=== PATIENT | female | born 1945 | race Caucasian/White ===

== ENCOUNTER → 2018-11-12 | Day surgery (SDC) | payer MEDICARE ==
[2018-11-10 10:59] LABS: BASOPHILS % 0.5 % (0.0-1.0); EOSINOPHILS # (AUTO) 0.1 (0.0-0.4); HEMATOCRIT 38.2 % (34.2-44.1); HEMOGLOBIN 13.1 g/dL (12.0-16.0); LYMPHOCYTES # (AUTO) 1.5 (1.0-3.2); LYMPHOCYTES % 24.3 % (18.0-39.1); MEAN CORPUSCULAR HEMOGLOBIN 31.9 pg (28-32); MEAN CORPUSCULAR HGB CONC 34.3 g/dL (31-35); MEAN CORPUSCULAR VOLUME 92.9 fL (81-99); MONOCYTES # (AUTO) 0.6 (0.2-0.8); NEUTROPHILS # (AUTO) 3.9 (2.1-6.9); PLATELET COUNT 284 x10e3/uL (140-360); RED BLOOD COUNT 4.11 x10e6/uL (3.6-5.1); RED CELL DISTRIBUTION WIDTH 12.9 % (11.7-14.4)
[2018-11-10 11:10] LABS: ALANINE AMINOTRANSFERASE 20 IU/L (0-55); ALBUMIN 3.8 g/dL (3.5-5.0); ALKALINE PHOSPHATASE 81 IU/L (40-150); ANION GAP 11.6 mmol/L (8-16); BLOOD UREA NITROGEN 17 mg/dL (7-26); BUN/CREATININE RATIO 21 (6-25); CALCIUM 10.1 mg/dL (8.4-10.2); CARBON DIOXIDE 28 mmol/L (22-29); CHLORIDE 97 mmol/L (98-107); CREATININE, SERUM 0.82 mg/dL (0.57-1.11); EST GLOMERULAR FILTRATION RATE > 60 ML/MIN (60-); GLUCOSE 87 mg/dL (74-118); POTASSIUM 4.6 mmol/L (3.5-5.1); SODIUM 132 mmol/L (136-145)
[2018-11-12] VITALS (9 sets, daily range): BP systolic 100–121; BP diastolic 50–83
[~2018-11-12] VITALS: Ht 168.9 cm; Wt 63.5 kg
[~2018-11-12] MED LIST: CALCIUM ACETAT667 M1; FENTANYL CITRATE/PF 100MCG/2 ML INJ ONE; HEPARIN SOD (PORCINE) 1000 UNIT/ML 30ML ONE; HEPARIN SOD/SOD CHLORIDE 2,000 ML ONE; IOPAMIDOL 370 MG/ML 200 ML INFUS..BTL INJ ONE; LIDOCAINE HCL 2% LOCAL 20 ML VIAL ONE; METOPROLOL TART25 MG PO; MIDAZOLAM HCL 2 MG/2 ML VIAL ONE; NITROGLYCERIN/D5W 200 MCG/ML 250 ML ONE; SIMVASTATIN20 MG PO; SODIUM CHLORIDE 0.9% 1000ML 1,000 ML ONE; VERAPAMIL HCL 2.5 MG/ML 2 ML VIAL ONE; VITAMIN D1000 UNI1 PO; eliquis PO
--- OUTSIDE RECORDS SUMMARY | 2018-11-12 11:06 | XMS REPORT | Continuity of Care Document ---
Author Author [facility] Interface Address Unknown Phone Unavailable Problems Problem Status Onset Date Classification Date Reported Comments Source Upper respiratory infection 12/17/2016 Diagnosis 12/17/2016 [facility] Allergic conjunctivitis 12/17/2016 Diagnosis 12/17/2016 [facility] J98.4 - OTHER DISORDERS OF LUNG Active 04/26/2015 [facility] Acute bronchitis Active Problem 11/08/2018 [facility] Acute upper respiratory infection Active Problem 11/08/2018 [facility] Allergic rhinitis Active Problem 11/08/2018 [facility] Arthritis Active Problem 11/08/2018 [facility] H/O: lung cancer Active Problem 11/08/2018 [facility] History of endometrial cancer Active Problem 11/08/2018 [facility] Hyperlipidemia Active Problem 11/08/2018 [facility] LUMBAR/SPINE Active [facility] Medications Medication Details Route Status Patient Instructions Ordering Provider Order Date Source Amoxicillin 875 MG / Clavulanate 125 MG Oral Tablet [Augmentin 875-mg] 875 mg=1 tab, PO, Q12H, X 10 day, # 20 tab, 0 Refill(s), Pharmacy: [facility] [id number] Active 11/24/2017 [facility] Azithromycin 5 Day Dose Pack 250 mg oral tablet See Instructions, Take 2 tablets by mouth the first day then 1 tablet by mouth days 2-5., X 5 day, # 6 tab, 0 Refill(s), Pharmacy: [facility] [id number] No Longer Active 07/10/2017 [facility] 200 ACTUAT Albuterol 0.09 MG/ACTUAT Metered Dose Inhaler [ProAir HFA] 2 puff, INHALER, Q6H, PRN wheezing, coughing, or shortness of breath, Use twice a day (am & pm), and as need for cough/wheezing, # 1 ea, 1 Refill(s), Pharmacy: [facility] [id number] Active 07/10/2017 [facility] clindamycin 150 mg oral capsule 150 mg=1 cap, PO, Q6H, X 10 day, # 40 cap, 0 Refill(s), Pharmacy: [facility] [id number] Active 05/22/2017 [facility] pravastatin 10 mg oral tablet 10 mg=1 tab, PO, Bedtime, # 90 tab, 1 Refill(s), Pharmacy: [facility] [id number] Active 02/08/2016 [facility] Azithromycin 250 MG Oral Tablet azithromycin 250 mg tablet Active [facility] benzonatate 100 MG Oral Capsule benzonatate 100 mg capsule TK 1 C PO Q 8 H FOR 10 DAYS PRF COUGH. DO NOT CRU OR CHEW Active [facility] Fluticasone propionate 0.05 MG/ACTUAT Metered Dose Nasal Jackson fluticasone 50 mcg/actuation nasal spray,suspension Active [facility] levocetirizine dihydrochloride 5 MG Oral Tablet levocetirizine 5 mg tablet Active [facility] olopatadine 1 MG/ML Ophthalmic Solution [Patanol] Patanol 0.1 % eye drops INSTILL 1 DROP INTO AFFECTED EYE(S) BY OPHTHALMIC ROUTE 2 TIMES PER DAY AT AN INTERVAL OF 6 TO 8 HOURS Active [facility] Pravastatin Sodium 10 MG Oral Tablet pravastatin 10 mg tablet Active [facility] Allergies, Adverse Reactions, Alerts Substance Category Reaction Severity Reaction type Status Date Reported Comments Source No Known Medication Allergies Assertion Drug allergy [facility] Immunizations Immunization Date Given Site Status Last Updated Comments Source influenza virus vaccine, inactivated<sup>1</sup> 04/15/2017 Left Deltoid completed Hay Result Comment: Patient tolerated injection well, waited 10 minutes with no complaints-[facility] pneumococcal 13-valent vaccine<sup>4</sup> 03/02/2017 Left Deltoid completed Hay Result Comment: Patient tolerated injection well, waited 10 minutes with no complaints-[facility] influenza virus vaccine, inactivated<sup>2</sup> 03/25/2016 Right Deltoid completed Skyler Result Comment: [facility]: [id number] Patient tollerated injection well. Waited in the waiting area for 10 minutes without complications. Normal injection site. niru holland [facility] influenza virus vaccine, inactivated<sup>1</sup> 03/25/2016 Right Deltoid completed Holland Result Comment: [facility]: [id number] Patient tollerated injection well. Waited in the waiting area for 10 minutes without complications. Normal injection site. niru holland [facility] influenza virus vaccine, inactivated<sup>3</sup> 08/03/2015 Right Deltoid completed Holland Result Comment: [facility]: [id number] Patient tollerated injection well. Waited in the waiting area for 10 minutes without complications. Normal injection site. holland, niru [facility] influenza virus vaccine, inactivated<sup>1</sup> 08/03/2015 Right Deltoid completed Holland Result Comment: [facility]: [id number] Patient tollerated injection well. Waited in the waiting area for 10 minutes without complications. Normal injection site. niru holland [facility] influenza virus vaccine, inactivated<sup>2</sup> 08/03/2015 Right Deltoid completed Holland Result Comment: [facility]: [id number] Patient tollerated injection well. Waited in the waiting area for 10 minutes without complications. Normal injection site. holland niru [facility] influenza, injectable, quadrivalent 06/22/2015 completed [facility] Results Order Name Results Value Reference Range Date Interpretation Comments Source Influenza A negative 12/17/2016 [facility] Influenza B negative 12/17/2016 [facility] Chest 2 views DX Chest 2 views DX Exam: Chest X-ray 2 views : CLINICAL HISTORY: R05 Cough - R05 Cough. Comparison: 11/08/2014. Findings: PA and lateral views of the chest are obtained. The heart size is normal. The hilar and mediastinal structures are normal. The lungs are clear without consolidation or effusion. No acute bony abnormality. Pulmonary vascularity is normal. Scoliosis of the thoracolumbar spine, convex to the right breast is noted. Impression: No active disease . 12/05/2016 - - Read by: Sheri Coto MD Dictated Date/time: 12/05/16 16:09 Electronically Signed by: Sheri Coto MD 12/05/16 16:10 FINAL REPORT [facility] Bone Density DXA [employer] MA Bone Density DXA [employer] MA - Bone Density D[employer] MA BONE DENSITY EVALUATION: 02/13/2016 CLINICAL DATA: Post menopausal. Osteoporosis. RISK FACTORS: race. FINDINGS: Bone density evaluation was performed 02/13/2016 on the AP L1-L4 region of spine. The BMD average for the exam is 0.781 g/cm2. The T-score is -2.40 and the Z-score is -0.20. This matches the World Health Organization's criteria for osteopenia and places the patient at a medium risk for fracture. An additional bone density evaluation was performed 02/13/2016 on the right femur neck using a Hologic unit. The BMD average for the exam is 0.656 g/cm2. The T-score is -1.70 and the Z-score is 0.10. This matches the World Health Organization's criteria for osteopenia and places the patient at a medium risk for fracture. An additional bone density evaluation was performed 02/13/2016 on the right total femur area using a Hologic unit. The BMD average for the exam is 0.818 g/cm2. The T-score is -1.00 and the Z-score is 0.60. This matches the World Health Organization's criteria for normal bone density and places the patient within normal limits of fracture risk. An additional bone density evaluation was performed 02/13/2016 on the left femur neck using a Hologic unit. The BMD average for the exam is 0.638 g/cm2. The T- score is -1.90 and the Z-score is -0.10. This matches the World Health Organization's criteria for osteopenia and places the patient at a medium risk for fracture. An additional bone density evaluation was performed 02/13/2016 on the left total femur area using a Hologic unit. The BMD average for the exam is 0.857 g/cm2. The T-score is -0.70 and the Z-score is 0.90. This matches the World Health Organization's criteria for normal bone density and places the patient within normal limits of fracture risk. IMPRESSION: OSTEOPENIA Patient is at medium risk for fracture. This exam was dictated and interpreted by [id number] at [facility]. Dr. Olga Rios D.O. ht/penrad:02/14/2016 10:43:37 Leather Tacker: Chelle SHAIKH(Esther)(M), [facility] 02/13/2016 - - Read by: Olga Rios DO Dictated Date/time: 02/14/16 10:43 Electronically Signed by: Olga Rios DO 02/14/16 10:43 FINAL REPORT [facility] Digital Mammo Screening Gabriel MA Digital Mammo Screening Gabriel MA - DIGITAL MAMMO SCREENING GABRIEL MA BILATERAL DIGITAL SCREENING MAMMOGRAM WITH CAD: 02/13/2016 CLINICAL: Screening. Current study was evaluated with a Computer Aided Detection (CAD) system. Comparison is made to exams dated: 09/28/2014 mammogram and 09/08/2014 mammogram - [facility]. There are scattered fibroglandular densities in both breasts. No significant masses, calcifications, or other findings are seen in either breast. There has been no significant interval change. IMPRESSION: NEGATIVE There is no mammographic evidence of malignancy. A 1 year screening mammogram is recommended. Eloise Bishop M.D., rp/penmichel:02/27/2016 08:17:30 Leather Tacker: Olimpia Jones RT(R), [facility] This exam was dictated and interpreted by [id number] for [facility]. letter sent: Normal exam Mammogram BI-RADS: 1 Negative 02/13/2016 - - Read by: Eloise Bishop MD Dictated Date/time: 02/27/16 08:17 Electronically Signed by: Eloise Bishop MD 02/27/16 08:17 FINAL REPORT [facility] Chest 2 views DX Chest 2 views DX History: Other disorders of lung Comparison: None Findings: There are a few scattered coarse interstitial markings throughout both lung haynes, otherwise, the visualized lung haynes are clear. There is no pleural effusion or pneumothorax. There is moderate hyperinflation of both lungs. The cardiomediastinal silhouette and pulmonary vasculature are within normal limits. There is no suspicious lytic or sclerotic lesion of the visualized bony structures. Impression: 1. No acute cardiopulmonary process. 2. Hyperinflated lungs compatible with COPD. 3. Minimal scattered chronic lung changes/fibrosis. 04/26/2015 - - Read by: Timmy Russell MD Dictated Date/time: 04/26/15 13:58 Electronically Signed by: Timmy Russell MD 04/26/15 14:00 FINAL REPORT [facility] Vital Signs Vital Sign Value Date Comments Source BMI Calculated 22.81 11/24/2017 [facility] Weight 64.091 11/24/2017 [facility] Temperature Oral (F) 97.8 F 11/24/2017 [facility] Heart Rate 61 11/24/2017 [facility] Systolic (mm Hg) 114 11/24/2017 [facility] Diastolic (mm Hg) 77 11/24/2017 [facility] Height 167.64 cm 11/24/2017 [facility] Height 167.64 cm 11/02/2017 [facility] BMI Calculated 22.97 11/02/2017 [facility] Weight 64.545 11/02/2017 [facility] Temperature Oral (F) 97.8 F 11/02/2017 [facility] Heart Rate 66 11/02/2017 [facility] Systolic (mm Hg) 133 11/02/2017 [facility] Diastolic (mm Hg) 73 11/02/2017 [facility] Weight 64.545 07/10/2017 [facility] Systolic (mm Hg) 108 07/10/2017 [facility] Diastolic (mm Hg) 76 07/10/2017 [facility] Temperature Oral (F) 98.3 F 07/10/2017 [facility] Heart Rate 66 07/10/2017 [facility] Weight 62.727 05/22/2017 [facility] BMI Calculated 21.99 05/22/2017 [facility] Height 168.91 cm 05/22/2017 [facility] Systolic (mm Hg) 125 05/22/2017 [facility] Diastolic (mm Hg) 77 05/22/2017 [facility] Temperature Oral (F) 98.0 F 05/22/2017 [facility] Heart Rate 64 05/22/2017 [facility] Diastolic (mm Hg) 85 12/17/2016 [facility] Height 66.5 12/17/2016 [facility] Systolic (mm Hg) 120 12/17/2016 [facility] Weight 136 12/17/2016 [facility] Encounters Location Location Details Encounter Type Encounter Number Reason For Visit Attending Provider ADM Date DC Date Status Source [facility] Outpatient Imaging [facility] Outpt Diag Services [id number] Stephon Faulkner 04/26/2015 04/27/2015 [facility] Outpatient [id number] EDILBERTO COREA 08/17/2015 Active [facility] [id number] EDILBERTO ANMOL 11/02/2015 Active [facility] Outpatient [id number] EDILBERTO ANMOL 01/16/2016 Active [facility] [place] [place] Outpatient [id number] EDILBERTO ANMOL 02/04/2016 Active [facility] Outpatient Imaging [facility] Outpatient [id number] Edilberto Anmol 02/13/2016 02/14/2016 [facility] Outpatient [id number] EDILBERTO COREA 03/25/2016 Active [facility] Outpatient [id number] EDILBERTO COREA 06/30/2016 Active [facility] Outpatient [id number] EDILBERTO COREA 11/19/2016 Active [facility] Outpatient [id number] URIEL MARKS 12/05/2016 Active [facility] Outpatient Imaging [facility] Outpt Diag Services [id number] Uriel Marks Jr 12/05/2016 12/06/2016 [id number]/I-[address] FAHEEM GabrielC: [address] [place] [address], Ph. [id number] Edilson Ceballos 12/17/2016 [facility] Outpatient [id number] EDILBERTO COREA 01/30/2017 [facility] [id number] EDILBERTO COREA 02/09/2017 Active [facility] Outpatient [id number] URIEL MARKS 03/02/2017 Active [facility] [place] Outpatient [id number] URIEL MARKS 04/15/2017 Active [facility] Outpatient [id number] URIEL MARKS 04/22/2017 Active [facility] Outpatient [id number] TYRONE GILES 05/22/2017 Active [facility] Outpatient [id number] BRUCE KAUR 05/22/2017 Active [facility] Primary Care [facility] Outpatient [id number] Edilberto Corea 05/22/2017 05/23/2017 [facility] Primary Care [facility] Ambulatory Pre-Reg [id number] Bruce Kaur 05/22/2017 05/22/2017 [facility] Outpatient [id number] BRUCE KAUR 07/10/2017 Active [facility] Outpatient [id number] Edilberto Corea 07/10/2017 07/11/2017 [facility] Outpatient [id number] URIEL MARKS 10/14/2017 Active [facility] Ambulatory Pre-Reg [id number] Uriel Marks Jr 10/14/2017 10/14/2017 [facility] Outpatient [id number] [facility] 11/02/2017 [facility] Outpatient [id number] [facility] 11/02/2017 11/03/2017 [facility] Outpatient [id number] [facility] 11/24/2017 [facility] Outpatient [id number] [facility] 11/24/2017 11/25/2017 [facility] Phone Message [id number] 04/15/2018 04/17/2018 [facility] Outpatient [id number] URIEL MARKS 04/21/2018 [facility] Ambulatory Pre-Reg [id number] Uriel Marks Jr 04/21/2018 04/21/2018 [facility] Procedures Procedure Code Date Perfomer Comments Source Colon cancer screening<sup>1</sup> [id number] 03/17/2017 Cologuard negative [facility] Bone density scan 763735996 06/22/2016 [facility] Date of last mammogram [id number] 06/22/2016 [facility] Eye examination 88388545 06/22/2015 [facility] Hysterectomy [id number] 06/22/1999 [facility] Hysterectomy 105474522 06/22/1999 [facility]
--- OUTSIDE RECORDS SUMMARY | 2018-11-12 11:06 | XMS REPORT | Summary of Care ---
Author Author [facility] Organization [facility] Address Unknown Phone Unavailable Encounter AKUA Mauricio(FIN) [id number] Date(s): 05/22/17 - 05/22/17 [facility] [address] [place], [place] [address] [phone] Attending Physician: Bruce Hood MSN, RN, DIMENSIONAL ENGINEER- Vital Signs No data available for this section Problem List Condition Effective Dates Status Health Status Informant Allergic Active rhinitis(Confirmed) Arthritis(Confirmed) Active H/O: lung Active cancer(Confirmed) History of Active endometrial cancer(Confirmed) Hyperlipidemia(Confi Active rmed) Allergies, Adverse Reactions, Alerts Substance Reaction Severity Status NKDA Active Medications No data available for this section Results No data available for this section Immunizations Given and Recorded Vaccine Date Status Refusal Reason influenza virus vaccine, inactivated1 04/15/17 Given influenza virus vaccine, inactivated2 03/25/16 Given influenza virus vaccine, inactivated3 08/03/15 Given pneumococcal 13-valent vaccine4 03/02/17 Given 1Result Comment: Patient tolerated injection well, waited 10 minutes with no complaints-amg 2Result Comment: [facility]: [id number] Patient tollerated injection well. Waited in the waiting area for 10 minutes wit hout complications. Normal injection site. niru michael 3Result Comment: [facility]: [id number] Patient tollerated injection well. Waited in the waiting area for 10 minutes wit hout complications. Normal injection site. niru michael 4Result Comment: Patient tolerated injection well, waited 10 minutes with no complaints-amg Procedures Procedure Date Related Diagnosis Body Site Colon cancer screening1 03/17/17 Hysterectomy 2000 1Cologuard negative Social History Social History Type Response Substance Abuse Use: None. Sexual 1, 2 Exercise Self assessment: Good condition. Employment/School Status: Employed. 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 Smoking Status Never smoker; Exposure to Tobacco Smoke None; Cigarette Smoking Last 365 Days No; Reg Smoking Cessation Counseling No 1has four kids, 2 sons and 2 daughters 2single, lives along but has dog, has son Assessment and Plan No data available for this section
--- OUTSIDE RECORDS SUMMARY | 2018-11-12 11:06 | XMS REPORT | Summary of Care ---
Author Author [facility] Organization [facility] Address Unknown Phone Unavailable Encounter AKUA Mauricio(FIN) [id number] Date(s): 12/05/16 - 12/05/16 [facility] Outpatient Imaging [facility] [address] [place] [phone] Discharge Disposition: Home or Self Care Attending Physician: Manohar Ornelas MD Vital Signs No data available for this [...] Status Refusal Reason influenza virus vaccine, inactivated1 03/25/16 Given influenza virus vaccine, inactivated2 08/03/15 [facility]: [id number] Patient tollerated injection well. Waited in the waiting area for 10 minutes wit hout complications. Normal injection site. niru michael 2Result Comment: [facility]: [id number] Patient tollerated injection well. Waited in the waiting area for 10 minutes wit hout complications. Normal injection site. niru michael Procedures Procedure Date Related Diagnosis Body Site Hysterectomy 1999 Social History Social History Type Response Substance Abuse Use: None. Sexual 1, 2 Exercise Self assessment: Good condition. Employment/School Status: Employed. 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 Smoking Status Never smoker; Exposure to Tobacco Smoke None; Cigarette Smoking Last 365 Days No; Reg Smoking Cessation Counseling No 1has four kids, 2 sons and 2 daughters 2single, lives along but has dog, has son Assessment and Plan No data available for this section
--- OUTSIDE RECORDS SUMMARY | 2018-11-12 11:07 | XMS REPORT | Summary of Care ---
Author Author [facility] Organization [facility] Address Unknown Phone Unavailable Encounter HQ Pilo_nandini(FIN) [id number] Date(s): 04/21/18 - 04/21/18 [facility] [address] [place] [address]- [phone] Attending Physician: Manohar Ornelas MD Vital Signs No data available for this section Problem List Condition Effective Dates Status Health Status Informant Acute Active bronchitis(Confirmed ) Acute upper Active respiratory infection(Confirmed) Allergic Active rhinitis(Confirmed) Arthritis(Confirmed) Active H/O: lung Active cancer(Confirmed) History of Active endometrial cancer(Confirmed) Hyperlipidemia(Confi Active rmed) Allergies, Adverse Reactions, Alerts No Known Medication Allergies Medications No data available for this section Results No data available for this section Immunizations Given and Recorded Vaccine Date Status Refusal Reason influenza virus vaccine, inactivated1 04/15/17 Given influenza virus vaccine, inactivated2 03/25/16 Given influenza virus vaccine, inactivated3 08/03/15 Given pneumococcal 13-valent vaccine4 03/02/17 Given 1Result Comment: Patient tolerated injection well, waited 10 minutes with no complaints-amg 2Result Comment: [facility]: [id number] Patient tollerated injection well. Waited in the waiting area for 10 minutes wit hout complications. Normal injection site. niru michael 3Result Comment: [facility]: [id number] Patient tollerated injection well. Waited in the waiting area for 10 minutes wit hout complications. Normal injection site. niru michael 4Result Comment: Patient tolerated injection well, waited 10 minutes with no complaints-amg Procedures Procedure Date Related Diagnosis Body Site Status Colon cancer screening1 03/17/17 Completed Bone density scan 06/22/16 Completed Date of last mammogram 06/22/16 Completed Eye examination 06/22/15 Completed Hysterectomy 2000 Completed 1Cologuard negative Social History Social History Type Response Substance Abuse Use: None. Sexual 1, 2 Exercise Self assessment: Good condition. Employment/School Status: Employed. 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 Smoking Status Never smoker; Exposure to Tobacco Smoke None; Cigarette Smoking Last 365 Days No; Reg Smoking Cessation Counseling No entered on: 11/24/17 1has four kids, 2 sons and 2 daughters 2single, lives along but has dog, has son Assessment and Plan No data available for this section
--- OUTSIDE RECORDS SUMMARY | 2018-11-12 11:07 | XMS REPORT | Summary of Care ---
Author Author [facility] Outpatient Imaging [facility] Organization [facility] Outpatient Imaging [facility] Address Unknown Phone Unavailable Encounter AKUA Mauricio(FIN) [id number] Date(s): 02/13/16 - 02/13/16 [facility] Outpatient Imaging [facility] [address] [place] [phone] Discharge Disposition: Home or Self Care Attending Physician: Josy Zepeda MD Vital Signs No data available for this section Problem List Condition Effective Dates Status Health Status Informant Allergic Active rhinitis(Confirmed) Arthritis(Confirmed) Active H/O: lung Active cancer(Confirmed) History of Active endometrial cancer(Confirmed) Hyperlipidemia(Confi Active rmed) Allergies, Adverse Reactions, Alerts Substance Reaction Severity Status NKDA Active Medications pravastatin 10 mg oral tablet 10 mg=1 tab, PO, Bedtime, # 90 tab, 1 Refill(s), Pharmacy: [facility] [id number] Start Date: 02/08/16 Status: Ordered Results No data available for this section Immunizations Given and Recorded Vaccine Date Status Refusal Reason influenza virus vaccine, inactivated1 08/03/15 Given 1Result Comment: [facility]: [id number] Patient tollerated injection well. Waited in the waiting area for 10 minutes wit hout complications. Normal injection site. niru michael Procedures Procedure Date Related Diagnosis Body Site Hysterectomy 1999 Social History Social History Type Response Substance Abuse Use: None. Sexual 1, 2 Exercise Self assessment: Good condition. Employment/School Status: Employed. 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 Smoking Status Never smoker; Exposure to Tobacco Smoke None; Cigarette Smoking Last 365 Days No; Reg Smoking Cessation Counseling No 1has four kids, 2 sons and 2 daughters 2single, lives along but has dog, has son Assessment and Plan No data available for this section
--- OUTSIDE RECORDS SUMMARY | 2018-11-12 11:07 | XMS REPORT | Summary of Care ---
Author Author [facility] Outpatient Imaging [facility] Outpatient Imaging [facility] Address Unknown Phone Unavailable Encounter HQ Encntr_alilarry(GENI) [id number] Date(s): 04/26/15 - 04/26/15 [facility] Outpatient Imaging [address] [phone] Discharge Disposition: Home Attending Physician: Stephon Faulkner MD Vital Signs No data available for this section Problem List No data available for this section Allergies, Adverse Reactions, Alerts No data available for this section Medications No data available for this section Results No data available for this section Immunizations No data available for this section Procedures No data available for this section Social History No data available for this section Assessment and Plan No data available for this section
--- OUTSIDE RECORDS SUMMARY | 2018-11-12 11:07 | XMS REPORT | Summary of Care ---
Author Author [facility] Organization [facility] Address Unknown Phone Unavailable Encounter AKUA Mauricio(FIN) [id number] Date(s): 05/22/17 - 05/22/17 [facility] [address] [place], [place] [address] [phone] Discharge Disposition: Home or Self Care Attending Physician: Josy Zepeda MD Vital Signs Most recent to 1 oldest [Reference Range]: Height 168.91 cm (05/22/17 9:45 AM) Temperature Oral 98.0 DegF [96.4-99.1 DegF] (05/22/17 9:45 AM) Blood Pressure 125/77 mmHg [90-140/60-90 mmHg] (05/22/17 9:45 AM) Peripheral Pulse 64 bpm Rate [60-100 bpm] (05/22/17 9:45 AM) Weight 62.727 kg (05/22/17 9:45 AM) Body Mass Index 21.99 m2 (05/22/17 9:45 AM) Problem List Condition Effective Dates Status Health Status Informant Allergic Active rhinitis(Confirmed) Arthritis(Confirmed) Active H/O: lung Active cancer(Confirmed) History of Active endometrial cancer(Confirmed) Hyperlipidemia(Confi Active rmed) Allergies, Adverse Reactions, Alerts Substance Reaction Severity Status NKDA Active Medications clindamycin 150 mg oral capsule 150 mg=1 cap, PO, Q6H, X 10 day, # 40 cap, 0 Refill(s), Pharmacy: [facility] [id number] Start Date: 05/22/17 Stop Date: 06/01/17 Status: Ordered Results No data available for this section Immunizations Given and Recorded Vaccine Date Status Refusal Reason influenza virus vaccine, inactivated1 04/15/17 Given influenza virus vaccine, inactivated2 03/25/16 Given influenza virus vaccine, inactivated3 08/03/15 Given pneumococcal 13-valent vaccine4 03/02/17 Given 1Result Comment: Patient tolerated injection well, waited 10 minutes with no complaints-amg 2Result Comment: [facility]: [id number] Patient tollerated injection well. Waited in the waiting area for 10 minutes wit hout complications. Normal injection site. niru michael 3Result Comment: [facility]: [id number] Patient tollerated injection well. Waited in the waiting area for 10 minutes wit hout complications. Normal injection site. niru michael 4Result Comment: Patient tolerated injection well, waited 10 minutes with no complaints-amg Procedures Procedure Date Related Diagnosis Body Site Colon cancer screening1 03/17/17 Hysterectomy 1999 1Cologuard negative Social History Social History Type Response Substance Abuse Use: None. Sexual 1, 2 Exercise Self assessment: Good condition. Employment/School Status: Employed. 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 Smoking Status Never smoker; Exposure to Tobacco Smoke None; Cigarette Smoking Last 365 Days No; Reg Smoking Cessation Counseling No 1has four kids, 2 sons and 2 daughters 2single, lives along but has dog, has son Assessment and Plan No data available for this section
--- OUTSIDE RECORDS SUMMARY | 2018-11-12 11:07 | XMS REPORT | Summary of Care ---
Author Author [facility] Organization [facility] Address Unknown Phone Unavailable Encounter AKUA Mauricio(GENI) [id number] Date(s): 11/24/17 - 11/24/17 [facility] [address] [place] [id number] [phone] Discharge Disposition: Home or Self Care Attending Physician: Miryam Koenig DNP, RN, [employer]AR[employer] MAKER-BC Vital Signs Most recent to 1 oldest [Reference Range]: Height 167.64 cm (11/24/17 8:16 AM) Temperature Oral 97.8 DegF [96.4-99.1 DegF] (11/24/17 8:16 AM) Blood Pressure 114/77 mmHg [90-140/60-90 mmHg] (11/24/17 8:16 AM) Peripheral Pulse 61 bpm Rate [60-100 bpm] (11/24/17 8:16 AM) Weight 64.091 kg (11/24/17 8:16 AM) Body Mass Index 22.81 m2 (11/24/17 8:16 AM) Problem List Condition Effective Dates Status Health Status Informant Acute Active bronchitis(Confirmed ) Acute upper Active respiratory infection(Confirmed) Allergic Active rhinitis(Confirmed) Arthritis(Confirmed) Active H/O: lung Active cancer(Confirmed) History of Active endometrial cancer(Confirmed) Hyperlipidemia(Confi Active rmed) Allergies, Adverse Reactions, Alerts Substance Reaction Severity Status NKDA Active Medications Augmentin 875 mg oral tablet 875 mg=1 tab, PO, Q12H, X 10 day, # 20 tab, 0 Refill(s), Pharmacy: [id number] Start Date: 11/24/17 Stop Date: 12/04/17 Status: Ordered Results No data available for this section Immunizations Given and Recorded Vaccine Date Status Refusal Reason influenza virus vaccine, inactivated1 04/15/17 Given influenza virus vaccine, inactivated2 03/25/16 Given influenza virus vaccine, inactivated3 08/03/15 Given pneumococcal 13-valent vaccine4 03/02/17 Given 1Result Comment: Patient tolerated injection well, waited 10 minutes with no complaints-amg 2Result Comment: [facility]: [id number] Patient tollerated injection well. Waited in the waiting area for 10 minutes wit hout complications. Normal injection site. niru michael 3Result Comment: [facility]: [id number] Patient tollerated injection well. Waited in the [...] Status: Employed. 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 Smoking Status Never smoker; Exposure to Tobacco Smoke None; Cigarette Smoking Last 365 Days No; Reg Smoking Cessation Counseling No entered on: 11/24/17 1has four kids, 2 sons and 2 daughters 2single, lives along but has dog, has son Assessment and Plan No data available for this section
--- OUTSIDE RECORDS SUMMARY | 2018-11-12 11:07 | XMS REPORT | Summary of Care ---
Author Author [facility] Organization [facility] Address Unknown Phone Unavailable Encounter AKUA Mauricio(GENI) [id number] Date(s): 07/10/17 - 07/10/17 [facility] [address] [place], [place] [address] [phone] Discharge Disposition: Home or Self Care Attending Physician: Josy Zepeda MD Vital Signs Most recent to 1 oldest [Reference Range]: Temperature Oral 98.3 DegF [96.4-99.1 DegF] (07/10/17 11:32 AM) Blood Pressure 108/76 mmHg [90-140/60-90 mmHg] (07/10/17 11:32 AM) Peripheral Pulse 66 bpm Rate [60-100 bpm] (07/10/17 11:32 AM) Weight 64.545 kg (07/10/17 11:32 AM) Problem List Condition Effective Dates Status Health Status Informant Acute Active bronchitis(Confirmed ) Acute upper Active respiratory infection(Confirmed) Allergic Active rhinitis(Confirmed) Arthritis(Confirmed) Active H/O: lung Active cancer(Confirmed) History of Active endometrial cancer(Confirmed) Hyperlipidemia(Confi Active rmed) Allergies, Adverse Reactions, Alerts Substance Reaction Severity Status NKDA Active Medications Azithromycin 5 Day Dose Pack 250 mg oral tablet See Instructions, Take 2 tablets by mouth the first day then 1 tablet by mouth d ays 2-5., X 5 day, # 6 tab, 0 Refill(s), Pharmacy: [id number] Start Date: 07/10/17 Stop Date: 07/15/17 Status: Completed ProAir HFA 90 mcg/inh inhalation aerosol with adapter 2 puff, INHALER, Q6H, PRN wheezing, coughing, or shortness of breath, Use twice a day (am & pm), and as need for cough/wheezing, # 1 ea, 1 Refill(s), [facility] Start Date: 07/10/17 Status: Ordered Results No data available for this section Immunizations Given and Recorded Vaccine Date Status Refusal Reason influenza virus vaccine, inactivated1 04/15/17 Given influenza virus vaccine, inactivated2 03/25/16 Given influenza virus vaccine, inactivated3 08/03/15 Given pneumococcal 13-valent vaccine4 03/02/17 Given 1Result Comment: Patient tolerated injection well, waited 10 minutes with no complaints-amg 2Result Comment: [facility]: [id number] Patient tollerated injection well. Waited in the waiting area for 10 minutes wit hout complications. Normal injection site. niru michael 3Result Comment: [facility]: [id number] Patient tollerated injection well. Waited in the waiting area for 10 minutes wit hout complications. Normal injection site. niru michael 4Result Comment: Patient tolerated injection well, waited 10 minutes with no complaints-amg Procedures Procedure Date Related Diagnosis Body Site Status Colon cancer screening1 03/17/17 Completed Hysterectomy 2000 Completed 1Cologuard negative Social History Social History Type Response Substance Abuse Use: None. Sexual 1, 2 Exercise Self assessment: Good condition. Employment/School Status: Employed. 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 Smoking Status Never smoker; Exposure to Tobacco Smoke None; Cigarette Smoking Last 365 Days No; Reg Smoking Cessation Counseling No entered on: 07/10/17 1has four kids, 2 sons and 2 daughters 2single, lives along but has dog, has son Assessment and Plan No data available for this section
--- OUTSIDE RECORDS SUMMARY | 2018-11-12 11:07 | XMS REPORT | Summary of Care ---
Author Author [facility] Organization [facility] Address Unknown Phone Unavailable Encounter AKUA Mauricio(FIN) [id number] Date(s): 10/14/17 - 10/14/17 [facility] [address] [place] [id number] [phone] Attending Physician: Manohar Ornelas MD Vital Signs [...] minutes with no complaints-amg 2Result Comment: [facility]: [id number] Patient tollerated injection well. Waited in the waiting area for 10 minutes wit hout complications. Normal injection site. niru michael 3Result Comment: [facility]: [id number] Patient tollerated injection well. Waited in the [...] Status: Employed. 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 Smoking Status Never smoker; Exposure to Tobacco Smoke None; Cigarette Smoking Last 365 Days No; Reg Smoking Cessation Counseling No entered on: 07/10/17 1has four kids, 2 sons and 2 daughters 2single, lives along but has dog, has son Assessment and Plan No data available for this section
--- OUTSIDE RECORDS SUMMARY | 2018-11-12 11:07 | XMS REPORT | Summary of Care ---
Author Author [facility] Organization [facility] Address Unknown Phone Unavailable Encounter AKUA Mauricio(GENI) [id number] Date(s): 11/02/17 - 11/02/17 [facility] [address] [place] [id number] [phone] Discharge Disposition: Home or Self Care Attending Physician: Miryam Koenig MSN, RN, DENTAL COORDINATOR-BC Vital Signs Most recent to 1 oldest [Reference Range]: Height 167.64 cm (11/02/17 8:46 AM) Temperature Oral 97.8 DegF [96.4-99.1 DegF] (11/02/17 8:46 AM) Blood Pressure 133/73 mmHg [90-140/60-90 mmHg] (11/02/17 8:46 AM) Peripheral Pulse 66 bpm Rate [60-100 bpm] (11/02/17 8:46 AM) Weight 64.545 kg (11/02/17 8:46 AM) Body Mass Index 22.97 m2 (11/02/17 8:46 AM) Problem List Condition Effective Dates Status Health Status Informant Acute Active bronchitis(Confirmed ) Acute upper Active respiratory infection(Confirmed) Allergic Active rhinitis(Confirmed) Arthritis(Confirmed) Active H/O: lung Active cancer(Confirmed) History of Active endometrial cancer(Confirmed) Hyperlipidemia(Confi Active rmed) Allergies, Adverse Reactions, Alerts Substance Reaction Severity Status NKDA Active Medications No Known Medications Results No data available for this section Immunizations Given and Recorded Vaccine Date Status Refusal Reason influenza virus vaccine, inactivated1 04/15/17 Given influenza virus vaccine, inactivated2 03/25/16 Given influenza virus vaccine, inactivated3 08/03/15 Given pneumococcal 13-valent vaccine4 03/02/17 Given 1Result Comment: Patient tolerated injection well, waited 10 minutes with no complaints-amg 2Result Comment: [facility]: [id number] Patient tollerated injection well. Waited in the waiting area for 10 minutes wit hout complications. Normal injection site. niru michael 3Result Comment: [facility]: [id number] Patient tollerated injection well. Waited in the [...] Status: Employed. 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 Smoking Status Never smoker; Exposure to Tobacco Smoke None; Cigarette Smoking Last 365 Days No; Reg Smoking Cessation Counseling No entered on: 11/02/17 1has four kids, 2 sons and 2 daughters 2single, lives along but has dog, has son Assessment and Plan No data available for this section
--- OUTSIDE RECORDS SUMMARY | 2018-11-12 11:07 | XMS REPORT | Encounter Summary ---
Author Organization Unknown Address [address] [place] [address] Phone [phone] Reason for Visit Medical Complaint Instructions 1. Upper respiratory infection rapid flu (A+B) 2. Allergic conjunctivitis Patanol 0.1 % eye drops Discussion Note OTC tylenol/ibuprofen as needed for fever/pain. Stay hydrated and rest. If symptoms do not improve or worsen within 3-5 days or sooner, please follow up with PCP/UC/turning lathe tender. discussed viral/allergy cause, no antibiotics are needed. treat symptomatically. discussed treatment plan and medication use. patient verbalized understanding and agrees with the plan. Patient educational handouts: No information available. Plan of Care Patient Instructions continue benadryl as needed. warm compresses to the affected eye. keep eyes clean and dry. avoid applying eye make up until symptoms improve. Reminders Provider Appointments None recorded. Lab Rapid Flu (A+B) 12/17/2016 [facility] Referral None recorded. Procedures None recorded. Surgeries None recorded. Imaging None recorded. Medications Name Start Date azithromycin 250 mg tablet benzonatate 100 mg capsule TK 1 C PO Q 8 H FOR 10 DAYS PRF COUGH. DO NOT CRU OR CHEW fluticasone 50 mcg/actuation nasal spray,suspension levocetirizine 5 mg tablet Patanol 0.1 % eye drops INSTILL 1 DROP INTO AFFECTED EYE(S) BY OPHTHALMIC ROUTE 2 TIMES PER DAY AT AN INTERVAL OF 6 TO 8 HOURS pravastatin 10 mg tablet Medications Administered None recorded. Vitals Height Weight BMI Blood Pressure 5 ft 6.5 in 136 lbs 21.6 kg/m2 120/85 mm[Hg] Lab Results Date Name Specimen Result Interpretation Description Value Range Status Address Rapid Flu (A+B) Influenza a negative [facility]: [address] [place] [address] Influenza B negative [facility]: [address] [place] [address] Allergies Code Code System Name Reaction Severity Onset NKDA Problems None recorded. Procedures None recorded. Vaccine List Vaccine Type influenza, injectable, quadrivalent 06/21/2015 Social History Smoking Status Never Smoker Past Encounters 12/17/2016 Upper Respiratory Infection; Allergic Conjunctivitis Edilson Ceballos PA-C: [address] [place] [address], Ph. History of Present Illness Tcjnzjc-Cphou-Eoz Reported By: Patient HPI: Quality: cannot identify. Duration: constant. Severity: same. Onset/Timing: first recorded 1 day. Context: no ill contacts, no tick/insect bites, no recent travel, no new medications. Associated Symptoms: no fever/chills, no muscle aches, no rash, no lethargy, headache, cough, nasal passage blockage (stuffiness), nasal discharge; no sore throat, ear pain, shortness of breath or wheezing. Modifying Factors nothing gives relief, OTC medication Eye Complaint Reported By: Patient HPI: Location: left. Quality: dull; "feels like sandpaper is present" "pressure". Severity: mild. Duration actual date 1 day. Onset/Timing: first episode. Context no previous history of Iritis, no previous history of recurrent corneal erosion, no one else with similar symptoms; does not wear contacts; wears eyeglasses; no recent trauma to the eyes. Modifying factors nothing gives relief, OTC medication. Associated Symptoms: no sensitivity to light, no foreign body sensation in eyes, no pain in the eyes, no pain with eye movement, no fever/chills, no muscle aches, decreased vision/diplopia, watery discharge from the eyes, headache; recent congestion Review of Systems:ROS as noted in the HPI Review of Systems Basic Reported By: Patient Physical Exam Adult Basic, Adult Female Complete Reported By: Patient Constitutional: General Appearance: healthy-appearing, well-nourished, well-developed. Level of Distress: NAD. Ambulation: ambulating normally Psychiatric: Mental Status: active and alert. Orientation: to time, to place, to person Eyes: Lids and Conjunctivae: no pallor, injected, discharge. Pupils: PERRLA. EOM: EOMI. Sclerae: non-icteric, injected. Vision: acuity grossly intact Yxr-Ktni-Emury-Throat: Ears: no lesions on external ear, no outer ear tenderness, EACs clear, TMs clear. Hearing: no hearing loss. Nose: no lesions on external nose, nares patent, no septal deviation, nasal passages clear, no sinus tenderness, nasal discharge, post nasal drip. Lips, Teeth, and Gums: no mouth or lip ulcers, no bleeding gums, normal dentition. Oropharynx: moist mucous membranes, no erythema, no exudates, tonsils not enlarged Neck: Neck: supple, trachea midline, no masses, FROM. Lymph Nodes: no cervical LAD. Thyroid: no enlargement, non-tender, no nodules Lungs: Respiratory effort: no dyspnea, no tachypnea, no use of accessory muscles, no intercostal retractions. Auscultation: breath sounds normal Cardiovascular: Heart Auscultation: RRR, no murmurs Neurologic: Gait and Station: normal gait, normal station
--- OUTSIDE RECORDS SUMMARY | 2018-11-12 11:07 | XMS REPORT | Summary of Care ---
Author Author [facility] Organization [facility] Address Unknown Phone Unavailable Encounter HQ Kennantr_nandini(FIN) [id number] Date(s): 04/15/18 - 04/16/18 [facility] [address] [place] [address] [phone] Vital Signs No data available for this [...] 10 minutes with no complaints-amg 2Result Comment: [facility]: [id number] Patient tollerated injection well. Waited in the waiting area for 10 minutes wit hout complications. Normal injection site. niru michael 3Result Comment: [facility]: [id number] Patient tollerated injection well. Waited in the waiting area for 10 minutes wit hout complications. Normal injection site. niru michael 4Result Comment: Patient tolerated injection well, waited 10 minutes with no complaints-amg Procedures Procedure Date Related Diagnosis Body Site Status Colon cancer screening1 03/17/17 Completed Bone density scan 06/22/16 Completed Date of last mammogram 06/22/16 Completed Eye examination 1/1/16 Completed Hysterectomy 2000 Completed 1Cologuard negative Social History Social History Type Response Substance Abuse Use: None. Sexual 1, 2 Exercise Self assessment: Good condition. Employment/School Status: Employed. 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 Smoking Status Never smoker; Exposure to Tobacco Smoke None; Cigarette Smoking Last 365 Days No; Reg Smoking Cessation Counseling No entered on: 11/24/17 1has four kids, 2 sons and 2 daughters 2single, lives along but has dog, has son Assessment and Plan No data available for this section
--- NOTE | 2018-11-12 13:45 | NUR ---
1345 receive pt in #9 Identifier x2. Handoff nurse Paula Joseph TR band approach [facility] no fix Denies Cp or Sob. No gross issues pain pallor pressure or dysrhythmia. Respiration shallow and regular 99% RA back to baseline orientation. Abdomen soft and non tender denies necessity to defecate or urinate. Iv site w/o s/s infiltration. TR band intact ok to 1500 to decrease air. Bilater ppx4 PT/DP. Denies c/o CP or SOB. No gross signs pain,pallor, pressure or dysrhythmia. 1500-2cc intact neuro vascular function 1515 -2cc intact neuro vascular function 1530 -2cc intact neuro vascular function TR band off and 2x2 dressing with Coban in place. No gross issues pain pallor pressure or dysrhythmia. Arm splint in place. aware of dc instructions. Has copy of POC. Assist to car per w/c with [facility] escort. Aware of importance of f/o care. No co CP or SOB. ds/rn ,
--- NOTE | 2018-11-12 20:56 | Operative Report ---
DATE OF PROCEDURE: 11/12/2018 SURGEON: Edward Vázquez MD INDICATION: Coronary artery disease, abnormal stress test. PROCEDURES PERFORMED: 1. Left heart catheterization, selective coronary angiography. 2. Deployment of right wrist TR band. COMPLICATIONS: None. RECOMMENDATIONS: Medical therapy. DESCRIPTION OF PROCEDURE: Access obtained in the right radial artery using ultrasound guidance. A 5-Kinyarwanda sheath was placed. Diagnostic coronary angiogram revealed mild diffuse coronary artery disease, 10% to 20% luminal stenosis, 50% mid left anterior descending artery stenosis. No critical occlusions were noted. No intervention deemed necessary. LV end-diastolic pressure of 10. No gradient across aortic valve pullback. Right wrist sheath was removed. TR band applied. The patient discharged home. Edward Vázquez MD [facility] /[id number]
== END | disposition home or self-care (01) ==
LOC: CATH LAB 11:02
PROVIDERS: ATTEND Internal Medicine Interventional Cardiology
DX: I25.10 Atherosclerotic heart disease of native coronary artery without angina pectoris (principal); R94.39 Abnormal result of other cardiovascular function study; G47.33 Obstructive sleep apnea (adult) (pediatric); I48.0 Paroxysmal atrial fibrillation; I10 Essential (primary) hypertension; E78.00 Pure hypercholesterolemia, unspecified; Z01.812 Encounter for preprocedural laboratory examination; Z79.02 Long term (current) use of antithrombotics/antiplatelets; Z82.49 Family history of ischemic heart disease and other diseases of the circulatory system; Z82.3 Family history of stroke
CPT/HCPCS: 36415; 80053; 85025; 93458; C1769; C1887; J1644; J2001; J2250; J7030; Q9967

== ENCOUNTER → 2020-08-27 | Day surgery (SDC) | payer MEDICARE ==
[~2020-08-27] VITALS: Ht 170.2 cm; Wt 64.4 kg
[~2020-08-27] MED LIST changes: +BENZOCAINE 20% SPR 60 ML CAN ONE; +CALCIUM PO; +ELIQUIS5 MG PO; -HEPARIN SOD (PORCINE) 1000 UNIT/ML 30ML ONE; -HEPARIN SOD/SOD CHLORIDE 2,000 ML ONE; -IOPAMIDOL 370 MG/ML 200 ML INFUS..BTL INJ ONE; -LIDOCAINE HCL 2% LOCAL 20 ML VIAL ONE; +LIDOCAINE HCL 2% LOCAL INJ 5 ML SDV VIAL INJ ONE; +METOPROLOL TART50 MG PO; -NITROGLYCERIN/D5W 200 MCG/ML 250 ML ONE; +PROPOFOL IV EMULSION 10 MG/ML 20 ML VIAL ONE; -VERAPAMIL HCL 2.5 MG/ML 2 ML VIAL ONE; +VITAMIN D PO
[2020-08-27 09:19] LABS: BASOPHILS % 0.4 % (0.0-1.0); EOSINOPHILS # (AUTO) 0.1 (0.0-0.4); EOSINOPHILS % 1.9 % (0.0-6.0); HEMATOCRIT 38.5 % (34.2-44.1); HEMOGLOBIN 12.7 g/dL (12.0-16.0); LYMPHOCYTES # (AUTO) 1.3 (1.0-3.2); LYMPHOCYTES % 23.3 % (18.0-39.1); MEAN CORPUSCULAR HEMOGLOBIN 31.2 pg (28-32); MEAN CORPUSCULAR VOLUME 94.6 fL (81-99); MONOCYTES # (AUTO) 0.6 (0.2-0.8); MONOCYTES % 10.1 % (4.4-11.3); NEUTROPHILS # (AUTO) 3.6 (2.1-6.9); NEUTROPHILS % 64.1 % (38.7-80.0); PLATELET COUNT 243 x10e3/uL (140-360); RED BLOOD COUNT 4.07 x10e6/uL (3.6-5.1)
[2020-08-27 09:48] LABS: ALANINE AMINOTRANSFERASE 15 IU/L (0-55); ALBUMIN/GLOBULIN RATIO 1.1 (0.8-2.0); ALKALINE PHOSPHATASE 83 IU/L (40-150); ANION GAP 14.4 mmol/L (8-16); BLOOD UREA NITROGEN 16 mg/dL (7-26); BUN/CREATININE RATIO 21 (6-25); CARBON DIOXIDE 28 mmol/L (22-29); CHLORIDE 101 mmol/L (98-107); CREATININE, SERUM 0.76 mg/dL (0.57-1.11); EST GLOMERULAR FILTRATION RATE > 60 ML/MIN (60-); GLUCOSE 89 mg/dL (74-118); POTASSIUM 4.4 mmol/L (3.5-5.1); SODIUM 139 mmol/L (136-145)
[2020-08-27 11:10] VITALS: BP 106/65
[2020-08-27 11:25] VITALS: BP 120/72
[2020-08-27 11:35] VITALS: BP 117/88
[2020-08-27 11:45] VITALS: BP 118/87
[2020-08-27 12:00] VITALS: BP 112/67
[2020-08-27 12:30] VITALS: BP 121/79
== END | disposition home or self-care (01) ==
LOC: CATH LAB 08:54
PROVIDERS: ATTEND Internal Medicine Cardiovascular Disease
DX: I48.0 Paroxysmal atrial fibrillation (principal); I35.1 Nonrheumatic aortic (valve) insufficiency; I34.0 Nonrheumatic mitral (valve) insufficiency; I10 Essential (primary) hypertension; E78.5 Hyperlipidemia, unspecified; Z79.02 Long term (current) use of antithrombotics/antiplatelets; Z85.118 Personal history of other malignant neoplasm of bronchus and lung; Z82.49 Family history of ischemic heart disease and other diseases of the circulatory system; Z82.3 Family history of stroke
CPT/HCPCS: 36415; 80053; 85025; 93320; 93325; J2001; J2250; J2704; J3010; J7030; 93307; 93312